=== PATIENT | male | born 2000 | race Caucasian/White ===

== ENCOUNTER 2023-03-28 11:30 | Emergency (ER) | payer OTHER, SELFPAY ==
[2023-03-28 11:35] VITALS: BP 165/89; PULSE 82; RESP 18; TEMP 36.8; O2SAT 97; BMI 43.1
[2023-03-28 12:37] VITALS: BP 148/80; PULSE 81; RESP 18; O2SAT 98
[2023-03-28] MEDS: KETOROLAC TROMETHAMINE 60 MG/2 ML VIAL IM (12:43)
--- NOTE | 2023-03-28 13:23 | ED_ITS ---
HPI - Back Pain/Injury General Chief Complaint: Back Pain/Injury Stated Complaint: BACK PAIN Time Seen by Provider: 03/28/23 12:10 Mode of arrival: walk-in Limitations: no limitations History of Present Illness HPI Narrative: No history of fall or trauma but the patient have a history of similar pain 1 years ago, pain in the left side radiating down to his left toe mostly the big toe. The patient mentioned that there is no numbness tingling or any. weakness , he was evaluated by his primary care doctor a week ago when he gave him 1 dose of anti-inflammatory as well as 1 dose of muscle relaxant at his office after which the patient felt better. But the patient came back because the patient pain started 5 days ago. No incontinence of urine or stool no other complaints Related Data Previous Rx's Medication Instructions Recorded acetaminophen 650 mg 650 mg PO Q8H PRN pain #20 tabs 03/28/23 tablet,extended release (Tylenol 8 Hour) orphenadrine citrate 100 mg 100 mg PO BID PRN muscle spasm #10 03/28/23 tablet,extended release tabs prednisone 50 mg tablet 50 mg PO DAILY 5 days #5 tabs 03/28/23 Allergies Allergy/AdvReac Type Severity Reaction Status Date / Time No Known Drug Allergies Allergy Verified 03/28/23 11:35 Review of Systems ROS Status of ROS 10 or more systems reviewed and unremark able except as noted in history and below [facility] Social History Smoking status: Never smoker Exam Narrative Exam Narrative: Nurses notes and vital signs reviewed and patient is not hypoxic. General: Well-appearing and in no apparent distress. Skin: Warm, dry, no pallor noted. No rash. Head: Normocephalic, atraumatic. Neck: Supple, non-tender. Eye: Pupils are equal, round and EOMI. No scleral icterus. Ears, Nose, Mouth, and Throat: TM are clear, no nasal mucosal hypertrophy. Oral mucosa is moist, no posterior oropharynx erythema, uvula is mid-line Cardiovascular: Regular Rate and Rhythm without murmur, gallop or rub. Respiratory: No accessory muscle use or respiratory distress. Lungs are clear to auscultation, no wheezing, rales or rhonchi Chest Wall: no tenderness Back: No midline thoracic or lumbar vertebral tenderness. The patient have a left paraspinal muscle tenderness on the left side at the lumbar level mostly at the lower. Musculoskeletal: normal ROM, no calf or popliteal tenderness, no lower extremity edema/swelling GI: Abdomen is soft, non-distended. Normal bowel sounds. No masses appreciated. No tenderness to palpation. No rebound, guarding, or rigidity noted. Neurological: A&O x4. No cranial nerve dysfunction observed. No truncal ataxia. Moves all extremities. Sensation intact. Psychiatric: Cooperative and interactive. Normal mood and affect. Constitutional Vital Signs, click to edit/add: Last Vital Signs Temp 98.2 F 03/28/23 11:35 Pulse 81 03/28/23 12:37 Resp 18 03/28/23 12:37 BP 148/80 H 03/28/23 12:37 Pulse Ox 98 03/28/23 12:37 O2 Del Method Room Air 03/28/23 11:35 Course Vital Signs Vital signs: Vital Signs Temperature 98.2 F 03/28/23 11:35 Pulse Rate 82 03/28/23 11:35 Respiratory Rate 18 03/28/23 11:35 Blood Pressure 165/89 H 03/28/23 11:35 Pulse Oximetry 97 03/28/23 11:35 Oxygen Delivery Method Room Air 03/28/23 11:35 Temperature 98.2 F 03/28/23 11:35 Pulse Rate 81 03/28/23 12:37 Respiratory Rate 18 03/28/23 12:37 Blood Pressure 148/80 H 03/28/23 12:37 Pulse Oximetry 98 03/28/23 12:37 Oxygen Delivery Method Room Air 03/28/23 11:35 MDM - Back Pain/Injury MDM Narrative Medical decision making narrative: The patient was treated in the ER with Toradol as well as discharged with prednisone and Norflex Advised against carrying anything heavy for the next 5 to 7 days as well as instructed to come back in case of any new symptoms including alarming symptoms The patient is to follow up with primary care physician in next 2-3 days or to return to the emergency department should any of the signs or symptoms worsen or new symptoms develop. The patient agrees with the following Diagnosis and Treatment plan and the patient will be discharged home. Discharge Plan Discharge Chief Complaint: Back Pain/Injury Clinical Impression: Sciatica Patient Disposition: Home, Self-Care Time of Disposition Decision: 12:39 Condition: Good Prescriptions / Home Meds: New prednisone 50 mg tablet 50 mg PO DAILY 5 Days Qty: 5 0RF orphenadrine citrate 100 mg tablet extended release 100 mg PO BID PRN (Reason: muscle spasm) Qty: 10 0RF acetaminophen [Tylenol 8 Hour] 650 mg tablet extended release 650 mg PO Q8H PRN (Reason: pain) Qty: 20 0RF Instructions: Sciatica (ED), Acute Low Back Pain (ED) Stand Alone Forms: Portal Instructions Referrals: Shaun Álvarez MD [Primary Care Provider] - 1 week Deshaun Forbes MD [Physician] - 1 week Discharge Date/Time: 03/28/23 12:50
== END 2023-03-28 12:50 | disposition home or self-care (01) ==
PROVIDERS: Emergency Provider Emergency Medicine; PCP Family Medicine
DX: M54.32 Sciatica, left side (principal)
CPT/HCPCS: 96372; 99284; J1885

== ENCOUNTER 2023-04-05 11:30 | Outpatient (OUT) | payer OTHER, SELFPAY ==
--- OUTSIDE RECORDS SUMMARY | 2023-04-05 11:37 | XMS_ITS | CCD ---
Author Name Unknown Address [address] [place] [address] Organization [facility] Care Team Providers Care Elderly Caregiver Name Role Phone DR ARELI YANEZ Attending Unavailable DR ARELI YANZE Consulting Unavailable DR ARELI YANEZ Admitting Unavailable Stephanie Aguila Unavailable Problems Active Problems Problem Classification Problem Date Documented Da te Episodic/Chronic Unclassified (3 sources) CONTACT W/AND (SUSP) EXPOS COVID-19; Translations: [CONTACT W/AND (SUSP) EXPOS COVID-19] Onset: 02-22-2021 Past or Other Problems Problem Classification Problem Date Documented Da te Episodic/Chronic Immunizations and screening for infectious disease (2 sources) Contact with and (suspected) exposure to other viral communicable diseases Onset: 02-14-2021 Resolved: 04-09-2021 Episodic Other upper respiratory infections (2 sources) Acute upper respiratory infection, unspecified Onset: 02-14-2021 Resolved: 04-09-2021 Episodic Unclassified (1 source) CONTACT W/AND (SUSP) EXPOS COVID-19; Translations: [CONTACT W/AND (SUSP) EXPOS COVID-19] Onset: 02-17-2021 Results Test Name Value Interpretation Reference Range Facil ity Covid-19 PCR (CVDTBH)on SARS-CoV-2 (COVID-19) RNA SAMSON+probe Ql (Unsp spec) Not detected Normal NOT DETECTED [facility] Comment on above: Result Comment: This test is not yet catie roved or cleared by the [place] FDA. When there are no FDA-approved or cleared tests available, and other criteria are met, FDA can make tests available under an emergency access mechanism called an Emergency Use Authorization (EUA). The EUA for this test is supported by the [place] of Health and Human Service's (HHS's) declaration that circumstances exist to justify the emergency use of in vitro diagnostics for the detection and/or diagnosis of the virus that causes COVID-19. This EUA will remain in effect (meaning this test can be used) for the duration of the COVID-19 declaration justifying emergency of IVDs, unless it is terminated or revoked by FDA (after which the test may no longer be used). When diagnostic testing is negative, the possibility of a false negative should be considered in the context of a patient's recent exposures and the presence of clinical signs and symptoms consistent with SARS-CoV-2. Performed By: #### C [facility] #### [facility] [address] [place] [address] Dr. James Steinberg COVID Quick Testingon 2020 Result Negative [facility] Other Vital Signs Date Time Vital Sign Value Performing Clinician Facility 04-09-2021 12:45-0500 Body height 182.88 cm Stephanie Aguila Other [facility] Other 04-09-2021 12:45-0500 Body mass index (BMI) [Ratio] 46.11 kg/m2 Stephanie Aguila Other [facility] Other 04-09-2021 12:45-0500 Body temperature 100.2 [degF] Stephanie Aguila Other [facility] Other 04-09-2021 12:45-0500 Body weight 154.22 kg Stephanie Aguila Other [facility] Other 04-09-2021 12:45-0500 Respiratory rate 18 /min Stephanie Aguila Other [facility] Other 04-09-2021 12:45-0500 SaO2% (BldA) [Mass fraction] 98 % Stephanie Aguila Other [facility] Other 02-14-2021 10:30-0500 Body height 187.96 cm Stephanie Aguila Other [facility] Other 02-14-2021 10:30-0500 Body mass index (BMI) [Ratio] 43.65 kg/m2 Stephanie Aguila Other [facility] Other 02-14-2021 10:30-0500 Body temperature 98.2 [degF] Stephanie Aguila Other [facility] Other 02-14-2021 10:30-0500 Body weight 154.22 kg Stephanie Aguila Other [facility] Other 02-14-2021 10:30-0500 Respiratory rate 18 /min Stephanie Aguila Other [facility] Other 02-14-2021 10:30-0500 SaO2% (BldA) [Mass fraction] 98 % Stephanie Aguila Other [facility] Other Encounters Encounter Date Encounter Type Care Provider Facility Start: 04-09-2021 End: 04-09-2021 ambulatory Stephanie Aguila Other [facility] Other Start: 04-09-2021 Office outpatient vi sit 15 minutes Stephanie Ayla [facility] Start: 02-17-2021 End: 02-17-[address] ARELI YANEZ Facility: Start: 02-14-2021 End: 02-14-2021 ambulatory Stephanie Aguila Other [facility] Other Start: 02-14-2021 Office outpatient vi sit 15 minutes Stephanie Ayla [facility] Payers Date Payer Category Payer Unknown [id number] 1959 Unknown [id number] Unknown [id number] Social History Date Type Detail Facility Sex Assigned At [facility] Other Evaluation note 04-09-2021 Note Date & Type Note Facility 04-09-2021 Evaluation note Encounter Date Diagnosis Assessment Notes Mar, Contact with and (suspected) exposure to other viral communicable diseases (ICD-10 - Z20.828) Mar, Viral upper respiratory illness (ICD-10 - J06.9) Drink plenty fluids, get plenty of rest. Take Tylenol Motrin for aches pains or fevers. Follow-up with your family physician if no improvement in 2 to 3 days. Mar, Other Additional time spent conducting pre-visit phone call, screening for symptoms, instructions on social distancing, application and removal of PPE, and cleaning of examination room, equipment and supplies was preformed. Patient education given for testing methodology and results. Patient care instructions given in writting by [facility] Care At Home document. [facility] Other Evaluation note 02-14-2021 Note Date & Type Note Facility 02-14-2021 Evaluation note Encounter Date Diagnosis Assessment Notes Feb, Contact with and (suspected) exposure to other viral communicable diseases (ICD-10 - Z20.828) Feb, Viral upper respiratory illness (ICD-10 - J06.9) Drink plenty fluids, get plenty of rest. Take Tylenol or Motrin for aches pains or fevers. You may drink warm tea with honey for your sore throat. Follow-up with your family physician if no improvement in 2 to 3 days. Off work today. Feb, Other Additional time spent conducting pre-visit phone call, screening for symptoms, instructions on social distancing, application and removal of PPE, and cleaning of examination room, equipment and supplies was preformed. Patient education given for testing methodology and results. Patient care instructions given in writting by [facility] Care At Home document. [facility] Other Summary Purpose Family History No Family History Records Found Advance Directives No Advanced Directives Records Found Additional Source Comments (unrecognized sect ion and content) No Status Records Found INFORMATION SOURCE (unrecogn ized section and content) DATE CREATED AUTHOR 02/23/2021 [facility] REASON FOR VISIT (unrecogniz ed section and content) #3 BLUE F150, COUGH, FEVER,E XPOSURE TO FRIEND X 2 DAYS#11 BLUE F150, SORE THROAT, COUGH, FEVER FOR RECORDS PERTAINING TO PATIENTS WHO ARE OR HAVE BEEN ENROLLED IN A CHEMICAL DEPENDENCY/SUBSTANCEABUSE PROGRAM, SOME INFORMATION MAY BE OMITTED. This clinical summary was aggregated from multiple sources. Caution should be exercised in using it in the provision of clinical care. This summary normalizes information from multiple sources, and as a consequence, information in this document may materially change the coding, format and clinical context of patient data. In addition, data may be omitted in some cases. CLINICAL DECISIONS SHOULD BE BASED ON THE PRIMARY CLINICAL RECORDS. [facility]. provides no warranty or guarantee of the accuracy or completeness of information in this document.
--- NOTE | 2023-04-05 11:45 | XR_ITS ---
The [place] [id number] Patient Name: JAMEEL FLORES MRN: [id number] date: 2000 Sex: M Assigned Patient Location: RAD Current Patient Location: [facility] Accession/Order Number: [id number] Exam Date: 04/05/2023 11:38 Report Date: 04/05/2023 12:46 At the request of: ARELI YANEZ Procedure: XR lumbar spine 2-3V EXAMINATION: XR lumbar spine 2-3V HISTORY: Lumbar Radiculopathy M54.16 COMPARISON: No relevant comparison available. FINDINGS: BONES: No acute fracture or spondylolisthesis. No significant degenerative changes. Minimal rotatory levocurvature measuring 4 degrees DISC SPACES: Normal. No significant disc height narrowing, subluxation, or endplate abnormality. PARASPINOUS: Negative. No paraspinous abnormality is seen. OTHER: Negative. XR/XR lumbar spine 2-3V IMPRESSION: Minimal rotatory levocurvature Electronically authenticated by: LUARA CASTANEDA Date: 04/05/2023 12:46
== END 2023-04-05 11:31 | disposition home or self-care (01) ==
LOC: RAD 11:31
PROVIDERS: PCP Family Medicine; Visit Provider Family Medicine
DX: M54.16 Radiculopathy, lumbar region (principal)
CPT/HCPCS: 72100

== ENCOUNTER 2023-04-09 08:25 | Outpatient (RCR) | payer OTHER, SELFPAY | END 2023-05-21 13:28 | disposition home or self-care (01) | LOC: PT 08:25 | PROVIDERS: PCP Family Medicine; Visit Provider Family Medicine | DX: M54.30 Sciatica, unspecified side (principal) | CPT/HCPCS: 97035; 97110; 97112; 97161 ==

== ENCOUNTER 2023-05-27 08:33 | Outpatient (OUT) | payer OTHER, SELFPAY ==
--- NOTE | 2023-05-27 08:39 | MR_ITS ---
[place] [id number] Patient Name: JAMEEL FLORES MRN: [id number] date: 2000 Sex: M Assigned Patient Location: MRI Current Patient Location: MRI Accession/Order Number: [id number] Exam Date: 05/27/2023 08:45 Report Date: 05/27/2023 11:25 At the request of: ARELI YANEZ Procedure: MR lumbar spine wo con EXAM: MR lumbar spine wo con CLINICAL INDICATION: Lumbar Radiculopathy M54.16 COMPARISON: None TECHNIQUE/PROTOCOL: Noncontrast lumbar spine MR protocol (Sagittal T1, T2, STIR and axial T1, T2 sequences). FINDINGS: Segmentation: Normal. Conus: Terminates at the L1-L2 disc space. Spinal Cord and Cauda Equina: Normal. Pedicles: Congenitally shortened. Alignment: Normal. Marrow Signal: Normal. Vertebral Body Heights: Maintained. Sacroiliac Joints: Grossly normal given only partially visualized. Paraspinal Soft Tissues: Normal. Retroperitoneal Soft Tissues: No acute abnormalities. Spondylotic Changes: Disc desiccation at L3-L4, L4-L5, and L5-S1. Slight osteophytic ridging at L5-S1. T12-L1: No disc bulge or herniation. No high-grade spinal canal or foraminal narrowing. L1-L2: No disc bulge or herniation. No high-grade spinal canal or foraminal narrowing. L2-L3: No disc bulge or herniation. No high-grade spinal canal or foraminal narrowing. L3-L4: Small left central disc protrusion indents the ventral thecal sac. Mild spinal canal narrowing. No high-grade foraminal narrowing. L4-L5: Small central disc protrusion with hyperintense T2 annular fissure indents the ventral thecal sac. Disc material contacts the left and possibly right transiting L5 nerve roots. Mild spinal canal narrowing. No high-grade foraminal narrowing. Mild bilateral facet/ligamentum flavum hypertrophy. L5-S1: Large left lateral recess/left foraminal disc protrusion effaces the left lateral recess and lateral aspect of the spinal canal. Superimposed extruded disc component projects posteriorly from the disc protrusion and compresses the transiting left S1 nerve root. This also occludes the left foramen and results in advanced proximal left foraminal narrowing. Moderate spinal canal narrowing. Mild right foraminal narrowing. Minimal bilateral facet hypertrophy. MR/MR lumbar spine wo con IMPRESSION: 1. Large left lateral recess/left foraminal disc protrusion at L5-S1 effaces the left lateral recess and lateral aspect of the spinal canal. Superimposed extruded disc component projects posteriorly and compresses the transiting left S1 nerve root. This also occludes the left foramen and results in advanced proximal left foraminal narrowing. Moderate spinal canal narrowing at this level. 2. Small central disc protrusion at L4-L5 contacts the left and possibly right transiting L5 nerve roots. Electronically authenticated by: YVETTE SANCHEZ Date: 05/27/2023 11:25
--- OUTSIDE RECORDS SUMMARY | 2023-05-27 08:44 | XMS_ITS | CCD ---
Author Name Unknown Address [address] [place] [address] Organization [facility] Care Team Providers Care Model Home Sales Greeter Name Role Phone DR ARELI YANEZ Attending Unavailable DR ARELI YANEZ Consulting Unavailable DR ARELI YANEZ Admitting Unavailable [...] spec) Not detected Normal NOT DETECTED [facility] Comment on above: Result Comment: This test is not yet catie roved or cleared by the [place] FDA. When there are no FDA-approved or cleared tests available, and other criteria are met, FDA can make tests available under an emergency access mechanism called an Emergency Use Authorization (EUA). The EUA for this test is supported by the [place] of Health and Human Service's (HHS's) declaration [...] consistent with SARS-CoV-2. Performed By: #### C [facility] #### [facility] [address] [place] [address] Dr. James Steinberg COVID Quick Testingon 2020 Result Negative [facility] Other Vital Signs Date Time Vital Sign Value Performing Clinician Facility 04-09-2021 12:45-0500 Body height 182.88 cm Stephanie Aguila Other [facility] Other 04-09-2021 12:45-0500 Body mass index (BMI) [Ratio] 46.11 kg/m2 Stephanie Aguila Other [facility] Other 04-09-2021 12:45-0500 Body temperature 100.2 [degF] Stephanie Aguila Other [facility] Other 04-09-2021 12:45-0500 Body weight 154.22 kg Stephanie Aguila Other [facility] Other 04-09-2021 12:45-0500 Respiratory rate 18 /min Stephanie Aguila Other [facility] Other 04-09-2021 12:45-0500 SaO2% (BldA) [Mass fraction] 98 % Stephanie Aguila Other [facility] Other 02-14-2021 10:30-0500 Body height 187.96 cm Stephanie Aguila Other [facility] Other 02-14-2021 10:30-0500 Body mass index (BMI) [Ratio] 43.65 kg/m2 Stephanie Aguila Other [facility] Other 02-14-2021 10:30-0500 Body temperature 98.2 [degF] Stephanie Aguila Other [facility] Other 02-14-2021 10:30-0500 Body weight 154.22 kg Stephanie Aguila Other [facility] Other 02-14-2021 10:30-0500 Respiratory rate 18 /min Stephanie Aguila Other [facility] Other 02-14-2021 10:30-0500 SaO2% (BldA) [Mass fraction] 98 % Stephanie Aguila Other [facility] Other Encounters Encounter Date Encounter Type Care Provider Facility Start: 04-09-2021 End: 04-09-2021 ambulatory Stephanie Aguila Other [facility] Other Start: 04-09-2021 Office outpatient vi sit 15 minutes Stephanie Ayla [facility] Start: 02-17-2021 End: 02-17-[address] ARELI YANEZ Facility: Start: 02-14-2021 End: 02-14-2021 ambulatory Stephanie Aguila Other [facility] Other Start: 02-14-2021 Office outpatient vi sit 15 minutes Stephanie Ayla [facility] Payers Date Payer Category Payer Unknown [id number] 1959 Unknown [id number] Unknown [id number] Social History Date Type Detail Facility Sex Assigned At [facility] Other Evaluation note 04-09-2021 Note Date & [...] Patient care instructions given in writting by [facility] Care At Home document. [facility] Other Evaluation note 02-14-2021 Note Date & [...] Patient care instructions given in writting by [facility] Care [facility] Home document. [facility] Other Summary Purpose Family History No Family [...] BE BASED ON THE PRIMARY CLINICAL RECORDS. [facility]. provides no warranty or guarantee of the accuracy or completeness of information in this document.
== END 2023-05-27 08:34 | disposition home or self-care (01) ==
LOC: MRI 08:34
PROVIDERS: PCP Family Medicine; Visit Provider Family Medicine
DX: M54.16 Radiculopathy, lumbar region (principal); M51.26 Other intervertebral disc displacement, lumbar region
CPT/HCPCS: 72148

== ENCOUNTER 2023-06-11 10:21 | Outpatient (OUT) | payer OTHER, SELFPAY ==
--- NOTE | 2023-06-11 | XR_ITS ---
[facility] [place] [id number] Patient Name: JAMEEL FLORES MRN: [id number] date: 2000 Sex: M Assigned Patient Location: Current Patient Location: Accession/Order Number: [id number] Exam Date: 06/11/2023 10:23 Report Date: 06/12/2023 05:01 At the request of: SONAL BRAVO Procedure: XR lumbar spine min 4V EXAMINATION: XR lumbar spine min 4V HISTORY: LUMBAR SPINE PAIN COMPARISON: XR lumbar spine 04/05/2023 FINDINGS: BONES: Mild left convex curvature lumbar spine. No fracture, listhesis, or bone lesion. No change in alignment during flexion and extension. DISC SPACES: Slight narrowing L3-L4, L4-L5, L5-S1. PARASPINOUS: Negative. No paraspinous abnormality is seen. OTHER: Negative. XR/XR lumbar spine min 4V IMPRESSION: 1. Mild levocurvature of lumbar spine and multilevel minimal disc space narrowing, likely degenerative. 2. No acute abnormality. Electronically authenticated by: ROBERT PICKARD Date: 06/12/2023 05:01
--- OUTSIDE RECORDS SUMMARY | 2023-06-11 10:32 | XMS_ITS | CCD ---
Author Organization [facility] Care Team Providers Care Resident Care Manager Name Role Phone DR ARELI YANEZ Attending [...] spec) Not detected Normal NOT DETECTED [facility] Comment on above: Result Comment: This test is not yet catie roved or cleared by the [place] FDA. When there are no FDA-approved or cleared tests available, and other criteria are met, FDA can make tests available under an emergency access mechanism called an Emergency Use Authorization (EUA). The EUA for this test is supported by the [place] of Health and Human Service's (HHS's) declaration [...] consistent with SARS-CoV-2. Performed By: #### [facility] #### [facility] [address] [place] [address] Dr. James Steinberg COVID Quick Testingon 2020 Result Negative [facility] Other Vital Signs Date Time Vital Sign Value Performing Clinician Facility 04-09-2021 12:45-0500 Body height 182.88 cm Stephanie Ayla Other [facility] Other 04-09-2021 12:45-0500 Body mass index (BMI) [Ratio] 46.11 kg/m2 Stephanie Ayla Other [facility] Other 04-09-2021 12:45-0500 Body temperature 100.2 [degF] Stephanie Aguila Other [facility] Other 04-09-2021 12:45-0500 Body weight 154.22 kg Stephanie Carrillomond Other [facility] Other 04-09-2021 12:45-0500 Respiratory rate 18 /min Stephanie Aguila Other [facility] Other 04-09-2021 12:45-0500 SaO2% (BldA) [Mass fraction] 98 % Stephanie Carrillomond Other [facility] Other 02-14-2021 10:30-0500 Body height 187.96 cm Stephanie Ayla Other [facility] Other 02-14-2021 10:30-0500 Body mass index (BMI) [Ratio] 43.65 kg/m2 Stephanie Aguila Other [facility] Other 02-14-2021 10:30-0500 Body temperature 98.2 [degF] Stephanie Aguila Other [facility] Other 02-14-2021 10:30-0500 Body weight 154.22 kg Stephanie Aguila Other [facility] Other 02-14-2021 10:30-0500 Respiratory rate 18 /min Stephanie Aguila Other [facility] Other 02-14-2021 10:30-0500 SaO2% (BldA) [Mass fraction] 98 % Stephanie Aguila Other [facility] Other Encounters Encounter Date Encounter Type Care Provider Facility Start: 04-09-2021 End: 04-09-2021 ambulatory Stephanie Carrillomond Other [facility] Other Start: 04-09-2021 Office outpatient vi sit 15 minutes Stephanie Aguila [facility] Start: 02-17-2021 End: 02-17-[address] ARELI YANEZ Facility: Start: 02-14-2021 End: 02-14-2021 ambulatory Stephanie Ayla Other [facility] Other Start: 02-14-2021 Office outpatient vi sit 15 minutes Stephanie Aguila [facility] Payers Date Payer Category Payer Unknown [id number] 1959 Unknown [id number] Unknown [id number] Social History Date Type Detail Facility Sex Assigned At [facility] Other Evaluation note 04-09-2021 Note Date & [...] Patient care instructions given in writting by [facility] Care At Home document. [facility] Other Evaluation note 02-14-2021 Note Date & [...] Patient care instructions given in writting by [facility] document. [facility] Other Summary Purpose Family History No Family [...] BE BASED ON THE PRIMARY CLINICAL RECORDS. [employer]. provides no warranty or guarantee of the accuracy or completeness of information in this document.
== END 2023-06-11 10:22 | disposition home or self-care (01) ==
LOC: EC 10:21
PROVIDERS: PCP Family Medicine; Visit Provider Orthopaedic Surgery Orthopaedic Surgery of the Spine
DX: M54.50 Low back pain, unspecified (principal)
CPT/HCPCS: 72110

== ENCOUNTER 2023-06-21 12:29 | Outpatient (OUT) | payer OTHER, SELFPAY ==
--- OUTSIDE RECORDS SUMMARY | 2023-06-21 12:35 | XMS_ITS | CCD ---
Author Organization [facility] Care Team Providers Care Estate Planning Paralegal Name Role Phone DR ARELI YANEZ Attending [...] spec) Not detected Normal NOT DETECTED The [facility] Comment on above: Result Comment: This test is not yet catie roved or cleared by the [place] FDA. When there are no FDA-approved or cleared tests available, and other criteria are met, FDA can make tests available under an emergency access mechanism called an Emergency Use Authorization (EUA). The EUA for this test is supported by the [place] of Health and Human Service's (HHS's) declaration [...] By: #### [facility] #### [facility] [address] [place] [address] Dr. James Steinberg COVID Quick Testingon 2020 Result Negative [facility] Other Vital Signs Date Time Vital Sign Value Performing Clinician Facility 04-09-2021 12:45-0500 Body height 182.88 cm Stephanie Ayla Other [facility] 04-09-2021 12:45-0500 Body mass index (BMI) [Ratio] 46.11 kg/m2 Stephanie Ayla Other [facility] 04-09-2021 12:45-0500 Body temperature 100.2 [degF] Stephanie Aguila Other [facility] 04-09-2021 12:45-0500 Body weight 154.22 kg Stephanie Carrillomond Other [facility] 04-09-2021 12:45-0500 Respiratory rate 18 /min Stephanie Aguila Other [facility] 04-09-2021 12:45-0500 SaO2% (BldA) [Mass fraction] 98 % Stephanie Carrillomond Other [facility] 02-14-2021 10:30-0500 Body height 187.96 cm Stephanie Ayla Other [facility] 02-14-2021 10:30-0500 Body mass index (BMI) [Ratio] 43.65 kg/m2 Stephanie Aguila Other [facility] 02-14-2021 10:30-0500 Body temperature 98.2 [degF] Stephanie Aguila Other [facility] 02-14-2021 10:30-0500 Body weight 154.22 kg Stephanie Aguila Other [facility] 02-14-2021 10:30-0500 Respiratory rate 18 /min Stephanie Aguila Other [facility] 02-14-2021 10:30-0500 SaO2% (BldA) [Mass fraction] 98 % Stephanie Aguila Other [facility] Other Encounters Encounter Date Encounter Type Care Provider Facility Start: 04-09-2021 End: 04-09-2021 ambulatory Stephanie Carrillomond Other [facility] Start: 04-09-2021 Office outpatient vi sit 15 minutes Stephanie Aguila [facility] Start: 02-17-2021 End: 02-17-[address] ARELI YANEZ Facility: Start: 02-14-2021 End: 02-14-2021 ambulatory Stephanie Ayla Other [facility] Start: 02-14-2021 Office outpatient vi sit 15 minutes Stephanie Aguila [facility] Payers Date Payer Category Payer Unknown [id number] 1959 Unknown [id number] Unknown [id number] Social History Date Type Detail Facility Sex Assigned At [facility] Other Evaluation note 04-09-2021 Note Date & [...] Patient care instructions given in writting by [facility] document. [facility] Other Evaluation note 02-14-2021 Note Date & [...] Patient care instructions given in writting by [facility] document. [facility] Other Summary Purpose Family History No Family [...] BE BASED ON THE PRIMARY CLINICAL RECORDS. [employer] provides no warranty or guarantee of the accuracy or completeness of information in this document.
--- NOTE | 2023-06-21 13:00 | ECG_ITS ---
The [facility] Test Date: 2023-06-21 Pat Name: JAMEEL FLORES Department: Room: - Gender: Male Hospitality Director: : 2000 Requested By: [id number] Order Number: [id number] Reading MD: JESUS AYON Measurements Intervals [place] Rate: 83 P: 60 AR: 148 QRS: 19 QRSD: 94 T: 32 QT: 345 QTc: 406 Interpretive Statements SINUS RHYTHM No previous ECG available for comparison Electronically Signed On 06-24-2023 6:50:51 EDT by JESUS AYON
--- NOTE | 2023-06-21 13:00 | XR_ITS ---
The [address] [address] Patient Name: JAMEEL FLORES MRN: [id number] date: 2000 Sex: M Assigned Patient Location: [facility] Current Patient Location: [facility] Accession/Order Number: [id number] Exam Date: 06/21/2023 13:11 Report Date: 06/21/2023 13:20 At the request of: SONAL BRAVO Procedure: XR chest 2V PROCEDURE: XR chest 2V DATE: 06/21/2023 1:11 PM EDT COMPARISONS: None. CLINICAL INDICATION: 22 years Male Preop exam FINDINGS: The cardiomediastinal silhouette and pulmonary vasculature are within normal limits. The lungs are clear. There is no evidence of pleural effusion or pneumothorax. XR/XR chest 2V IMPRESSION: Chest radiograph is within normal limits. Electronically authenticated by: BRIGETTE RAY Date: 06/21/2023 13:20
--- NOTE | 2023-06-21 13:09 | PM.PRESUREVA ---
History of Present Illness History of Present Illness Chief complaint: Herniated Disc Narrative: Patient presents for preadmission testing accompanied by mom. Please see HPI from Dr. Altamirano's office dated 06/11/2023. Review of Systems ROS Narrative REVIEW OF SYSTEMS: Negative except as stated in HPI, ten or more systems reviewed. Constitutional: No fever , chills, weakness ENT: No sore throat or epistaxis Cardiovascular: No edema, chest pain, palpitations, or activity intolerance Respiratory: No shortness of breath, cough, or wheezing Gastrointestinal: No abdominal pain, constipation, diarrhea, or vomiting Genitourinary: No dysuria or hematuria Neurological: No numbness, weakness, or headache Psychiatric: No mood changes PFSH PFS Medical History (Updated 06/21/23 @ 12:37 by Stacey Steiner NP) Degenerative disc disease Lumbar radiculopathy ?M54.16 - Radiculopathy, lumbar region (ICD-10) Back pain ?M54.9 - Dorsalgia, unspecified (ICD-10) Herniated nucleus pulposus Family History (Updated 06/21/23 @ 12:48 by Stacey Steiner NP) Other Delayed recovery from anesthesia Family history of aneurysm Family history of coronary artery disease Family history of diabetes mellitus Family history of heart disease Family history of hypertension Family history of liver cancer Family history of myocardial infarction TIA (transient ischemic attack) Social History (Updated 06/21/23 @ 12:44 by Stacey Steiner NP) Within the past year, how often did you have a drink containing alcohol: monthly or less Smoking status: Former smoker Non-prescribed substance use: denies use Highest level of school completed/degree received: high school graduate Meds Home Medications and Allergies Home Medications ?Medication ?Instructions ?Recorded ?Confirmed ?Type gabapentin 300 mg capsule 300 mg PO Q8H 06/21/23 06/21/23 History Allergies Allergy/AdvReac Type Severity Reaction Status Date / Time No Known Drug Allergies Allergy Verified 06/21/23 12:41 Exam Narrative Exam Narrative: Constitutional: Awake, alert, comfortable, well-appearing, nontoxic, interactive, vital signs as charted Head: Normocephalic, atraumatic Neck: Supple, normal appearance, normal range of motion, no meningeal signs, no lymphadenopathy Respiratory: No respiratory distress, breath sounds clear Cardiovascular: Regular rate and rhythm, strong and regular heart tones Skin: No rashes or induration, no lesions, only visible skin inspected Neuro: No neurological deficits, normal sensation Psychiatric: Oriented ?3, normal affect Assessment and Plan Assessment and Plan (1) Herniated nucleus pulposus: (2) Back pain: (3) Lumbar radiculopathy: (4) Degenerative disc disease: Plan Left L5/S1 microdiscectomy scheduled with Dr. Altamirano 07/02/2023.
[2023-06-21 13:20] LABS: Basophils Absolute Auto 0.1 10^3/uL (0.0-0.1); Basophils Percent Auto 0.7 % (0.2-2.0); Eosinophils Absolute Auto 0.1 10^3/uL (0.0-0.7); Eosinophils Percent Auto 1.2 % (0.9-7.0); Hematocrit 45.9 % (42.0-54.0); Hemoglobin 14.8 g/dL (14.0-18.0); Immature Granulocytes Abs Auto 0.02 10^3/uL (0.00-0.03); Immature Granulocytes Pct Auto 0.3 % (0.0-0.5); Lymphocytes Absolute Auto 2.6 10^3/uL (1.2-3.8); Mean Corpuscular HGB Conc 32.2 g/dL (29.9-35.2); Mean Corpuscular Hemoglobin 27.8 pg (25.9-34.0); Mean Corpuscular Volume 86.1 fL (80.0-94.0); Mean Platelet Volume 9.8 fL (9.5-13.5); Monocytes Absolute Auto 0.5 10^3/uL (0.3-0.8); Monocytes Percent Auto 7.8 % (1.7-12.0); Neutrophils Absolute Auto 3.7 10^3/uL (1.4-6.5); Platelet Count 285 10^3/uL (150-450); Red Blood Count 5.33 10^6/uL (4.70-6.10); Red Cell Distribution Width 13.2 % (11.0-15.0); White Blood Count 6.9 10^3/uL (4.0-11.0)
[2023-06-21 13:47] LABS: INR 1.03; Partial Thromboplastin Time 28.8 sec (22.3-36.2); Prothrombin Time 10.9 sec (9.0-11.6)
[2023-06-21 14:19] LABS: Anion Gap 12.6; BUN Creatinine Ratio 12.6; Calcium 9.2 mg/dL (8.5-10.1); Carbon Dioxide 29.1 mmol/L (21.0-32.0); Chloride 103 mmol/L (98-107); Estimated GFR (African America >60 (>=60); Estimated GFR (Non-African Ame >60 (>=60); Glucose 93 mg/dL (74-106); Potassium 3.7 mmol/L (3.5-5.1); Sodium 141 mmol/L (136-145)
== END 2023-06-21 12:30 | disposition home or self-care (01) ==
LOC: PST 12:30
PROVIDERS: PCP Family Medicine; Visit Provider Orthopaedic Surgery Orthopaedic Surgery of the Spine
DX: Z01.810 Encounter for preprocedural cardiovascular examination (principal); Z01.812 Encounter for preprocedural laboratory examination; Z01.818 Encounter for other preprocedural examination; M51.26 Other intervertebral disc displacement, lumbar region
CPT/HCPCS: 71046; 80048; 85025; 85610; 85730; 87081; 93005; G0463

== ENCOUNTER 2023-07-02 06:10 | Day surgery (SDC) | payer OTHER, SELFPAY ==
[2023-06-21 13:06] VITALS: BP 153/86; PULSE 90; TEMP 36.5; O2SAT 97; BMI 41.3
[2023-07-02] VITALS (18 sets, daily range): BP systolic 127–174; BP diastolic 78–138; PULSE 76–107; TEMP 35.6–36.3; O2SAT 94–98; BMI 41.8
--- OUTSIDE RECORDS SUMMARY | 2023-07-02 06:13 | XMS_ITS | CCD ---
Author Organization [facility] Care Team Providers Care Energy Assistant Name Role Phone DR ARELI YANEZ Attending [...] spec) Not detected Normal NOT DETECTED The [facility] Comment on above: Result Comment: This test is not yet catie roved or cleared by the [place] FDA. When there are no FDA-approved or cleared tests available, and other criteria are met, FDA can make tests available under an emergency access mechanism called an Emergency Use Authorization (EUA). The EUA for this test is supported by the [place] [employer] Management of Health and Human Service's (HHS's) declaration [...] consistent with SARS-CoV-2. Performed By: #### C [facility] #### [facility] [address] [place] [address] Dr. James Steinberg COVID Quick Testingon 2020 Result Negative [facility] Other Vital Signs Date Time Vital Sign Value Performing Clinician Facility 04-09-2021 12:45-0500 Body height 182.88 cm Stephanie Ayla Other [facility] Other 04-09-2021 12:45-0500 Body mass index (BMI) [Ratio] 46.11 kg/m2 Stephanie Ayla Other [facility] Other 04-09-2021 12:45-0500 Body temperature 100.2 [degF] Stephanie Aguila Other [facility] Other 04-09-2021 12:45-0500 Body weight 154.22 kg Stephanie Carrillomond Other [facility] Other 04-09-2021 12:45-0500 Respiratory rate 18 /min Stephanie Aguila Other [facility] Other 04-09-2021 12:45-0500 SaO2% (BldA) [Mass fraction] 98 % Stephanie Carrillomond Other [facility] Other 02-14-2021 10:30-0500 Body height 187.96 cm Stephanie Ayla Other [facility] Other 02-14-2021 10:30-0500 Body mass index (BMI) [Ratio] 43.65 kg/m2 Stephanie Aguila Other [facility] Other 02-14-2021 10:30-0500 Body temperature 98.2 [degF] Stephanie Aguila Other [facility] Other 02-14-2021 10:30-0500 Body weight 154.22 kg Stephanie Aguila Other [facility] Other 02-14-2021 10:30-0500 Respiratory rate 18 /min Stephanie Aguila Other [facility] Other 02-14-2021 10:30-0500 SaO2% (BldA) [Mass fraction] 98 % Stephanie Aguila Other [facility] Other Encounters Encounter Date Encounter Type Care Provider Facility Start: 04-09-2021 End: 04-09-2021 ambulatory Stephanie Carrillomond Other [facility] Start: 04-09-2021 Office outpatient vi sit 15 minutes Stephanie Aguila [facility] Start: 02-17-2021 End: 02-17-[address] ARELI YANEZ Facility: Start: 02-14-2021 End: 02-14-2021 ambulatory Stephanie Ayla Other [facility] Other Start: 02-14-2021 Office outpatient vi sit 15 minutes Stephanie Aguila [facility] Payers Date Payer Category Payer Unknown [id number] 1959 Unknown [id number] Unknown [id number] Social History Date Type Detail Facility Sex Assigned At [facility] Other Evaluation note 04-09-2021 Note Date & [...] Patient care instructions given in writting by [facility] Care At Home document. [facility] Other Evaluation note 02-14-2021 Note Date & [...] Patient care instructions given in writting by [facility] document. [facility] Other Summary Purpose Family History No Family [...] BE BASED ON THE PRIMARY CLINICAL RECORDS. [employer] provides no warranty or guarantee of the accuracy or completeness of information in this document.
[2023-07-02] MEDS: LACTATED RINGER'S SOLUTION 1,000 ML 50 ML IV (06:46)
[2023-07-02] MEDS: CEFAZOLIN SODIUM/DEXTROSE,ISO 2 GM/50 ML PIGGYBACK IV (07:46)
[2023-07-02] MEDS: VANCOMYCIN HCL 1,000 MG VIAL 1000 MG TOPICAL (09:00)
[2023-07-02] MEDS: BUPIVACAINE LIPOSOME/PF 266 MG/13.3 ML VIAL INJ (09:15)
[2023-07-02] MEDS: 0.9 % SODIUM CHLORIDE 10 ML VIAL INJ (09:16)
[2023-07-02] MEDS: MEPERIDINE HCL/PF 25 MG/ML VIAL IVP (09:41)
[2023-07-02] MEDS: HYDROMORPHONE HCL 0.5 MG/0.5 ML SYRINGE IV (09:50)
--- NOTE | 2023-07-02 09:50 | FL_ITS ---
[address] [address] Patient Name: JAMEEL FLORES MRN: [id number] date: 2000 Sex: M Assigned Patient [facility] Current Patient Location: [facility] Accession/Order Number: [id number] Exam Date: 07/02/2023 07:45 Report Date: 07/05/2023 14:02 At the request of: SONAL BRAVO Procedure: FL fluoroscopy <1hr NON-READ EXAM: FL fluoroscopy <1hr NON-READ HISTORY: TECHNIQUE: FINDINGS: Please see Operative Report. Electronically authenticated by: RADIOLOGIST NO Date: 07/05/2023 14:02
[2023-07-02] MEDS: OXYCODONE HCL 5 MG TABLET PO (09:58)
--- NOTE | 2023-07-02 10:58 | PC.NURSE ---
patient got up and ambulated to bay 5 from bay 15 with minor soreness and able to tolerate pain. Patient is getting dressed to go home at this time.
--- NOTE | 2023-07-02 13:28 | W.PM.OPNOTE ---
Surgery Operative Note Operative Note Procedure Date: 07/02/23 Time Out Performed: yes Pre-op Diagnosis: L5-S1 herniated nucleus pulposus with stenosis and radiculopathy Post-op Diagnosis: same as pre-op Procedures performed: Left L5-S1 microdiscectomy Anesthesia: GETA Primary Surgeon: Joe Altamirano Complications: None Estimated blood loss (mL): 25 Findings: large disc herniation, stenosis Specimens: None Drains: None Indications for Procedures: ? INDICATIONS: ?This is a 22-year-old male with refractory back and left leg pain from lumbar stenosis and a large disc herniation at L5-S1. ?Patient had tried failed conservative therapy including medication management and physician directed home exercises.?Due to the persistence of symptoms and failure of conservative treatment, patient elected to proceed with surgical treatment. ?Patient, therefore, understood the indication for the surgery as well as its risks, benefits, and alternatives. ?These risks include, but are not limited to paralysis, infection, hematoma, dural tear, nerve root injury, reherniation requiring fusion, DVT/PE, stroke, KS, etc. ?All questions were answered and informed consent was obtained. Detailed description of Procedure: The patient was taken to the operating room by Anesthesiology Service and had satisfactory general anesthesia.? A first-generation cephalosporin was given within 1 hour of surgical incision,? 2 gm of cefazolin was given IV.? Venous thromboembolic prophylaxis was performed with sequential devices.? The patient was then positioned prone on a standard OSI frame with the abdomen hanging free and all bony prominences well padded.? The low back was then prepped and draped in its entirety in the usual sterile fashion. Before incision, a formal timeout was taken per protocol. We next took a left-sided approach and performed subperiosteal dissection out to the medial facet joint at L5-S1. Intraoperative fluoroscopy was used to confirm level. Satisfied with exposure and confirmation of level, we then began the superior laminotomy of S1 and inferior laminotomy of L5. We then entered the spinal canal, resected ligamentum flavor in its entirety over this region. We then performed partial medial facetectomy to get lateral to the facet overhang, but just medial to the pedicles and nerve roots. Care was taken to preserve stability of the pars and the facet joint. We then mobilized the left S1 nerve root over a large extruded disc herniation. Hemostasis was achieved over the disc space. Variety of curettes and pituitary was used to remove the large extruded disc herniation. Once this was done, we palpated medially and there were no other loose fragments to be removed. There was excellent excursion of the left S1 nerve root both medially and laterally without tension. This thereby completed our microdiscectomy at L5-S1 on the left. Satisfied with this, we then achieved hemostasis.? We then copiously irrigated the wound. The wound was then closed in layers with interrupted Vicryl sutures and dusted with vancomycin power.? A 3-0 Monocryl was used for the skin. The skin edges were sealed with Dermabond.? A dry sterile dressing was applied.? The patient was then returned to the hospital bed, extubated, and taken to the recovery room in stable condition. POSTOPERATIVE CARE: ?The patient will be recovered in PACU and then discharged home per clinical indication. Patient will follow up in the office in 4-6 weeks. MODIFIER 22: ?Obesity BMI 41.8. Due to the patient's BMI greater than 30, modifier 22 will be applied due to the patient's case taking 50% longer due to poor visualization and orientation. Network Relay Tester: Deshaun Qureshi
== END 2023-07-02 11:00 | disposition home or self-care (01) ==
PROVIDERS: PCP Family Medicine; Visit Provider Orthopaedic Surgery Orthopaedic Surgery of the Spine
PROC: (CPT 630; principal; 2023-07-02 07:30)
DX: M51.26 Other intervertebral disc displacement, lumbar region (principal); M51.17 Intervertebral disc disorders with radiculopathy, lumbosacral region; M48.07 Spinal stenosis, lumbosacral region; Z87.891 Personal history of nicotine dependence; E66.9 Obesity, unspecified; Z68.41 Body mass index [BMI] 40.0-44.9, adult
CPT/HCPCS: 63030; 36415; 76000; 88304; 99999; J1094; J1170; J2704; J3370